=== PATIENT | female | born 2000 | race Caucasian/White ===

== ENCOUNTER 2024-04-20 14:10 | Emergency (ER) | payer OTHER ==
[~2024-04-20] VITALS: Ht 165.1 cm; Wt 53.5 kg
[2024-04-20 14:39] VITALS: TEMP 98.7
[2024-04-20] MEDS ORDERED: ACETAMINOPHEN 325 MG TABLET ONE (15:31)
[2024-04-20] MEDS ORDERED: IBUPROFEN 600 MG TABLET ONE (15:31)
[2024-04-20] MEDS: IBUPROFEN 600 MG TABLET PO ONE (15:36)
[2024-04-20] MEDS: ACETAMINOPHEN 325 MG TABLET PO ONE (15:36)
[2024-04-20 15:52] LABS: BASOPHILS % (AUTO) 0.4 % (0.0-2.0); EOSINOPHILS # (AUTO) 0.2 K/uL (0.0-0.7); EOSINOPHILS % (AUTO) 2.5 % (0.0-6.0); HEMATOCRIT 41 % (33-45); HEMOGLOBIN 13.4 g/dL (11.5-14.8); LYMPHOCYTES # (AUTO) 1.3 K/uL (0.8-4.8); LYMPHOCYTES % (AUTO) 17.4 % (20.0-44.0); MEAN CORPUSCULAR HEMOGLOBIN 31 PG (26.0-33.0); MEAN CORPUSCULAR HGB CONC 33 g/dl (31.0-36.0); MEAN CORPUSCULAR VOLUME 94 fL (82-100); MONOCYTES # (AUTO) 0.6 K/uL (0.1-1.30); MONOCYTES % (AUTO) 8.2 % (2.0-12.0); NEUTROPHILS # (AUTO) 5.4 K/uL (1.8-8.9); NEUTROPHILS % (AUTO) 71.5 % (43.0-81.0); PLATELET COUNT (AUTO) 184 K/uL (150-450); RED BLOOD CELL COUNT(AUTO) 4.36 MIL/uL (4.0-5.2); RED CELL DISTRIBUTION WIDTH 14.3 % (11.5-15.0); WHITE BLOOD COUNT (AUTO) 7.6 K/uL (4.3-11.0)
[2024-04-20 15:57] LABS: APPEARANCE,URINE CLEAR (CLEAR); BILIRUBIN,URINE NEGATIVE (NEGATIVE); BLOOD, URINE 1+ Ery/uL (NEGATIVE); COLOR,URINE YELLOW (YELLOW); KETONES,URINE 1+ mg/dL (NEGATIVE); LEUKOCYTE ESTERASE ,URINE 2+ (NEGATIVE); NITRITE, URINE NEGATIVE (NEGATIVE); PROTEIN,URINE NEGATIVE (NEGATIVE); UGLUCOSE NEGATIVE (NEGATIVE); UROBILINOGEN,URINE 0.2 EU/dL (0.2)
[2024-04-20 15:58] LABS: PREGNANCY TEST URINE QUAL NEG (NEGATIVE)
[2024-04-20 16:03] LABS: ADD URINE CULTURE YES; BACTERIA,URINE 1+ /HPF (None Seen); WBC,URINE 21-50 /HPF (0-3)
[2024-04-20 16:09] LABS: ALBUMIN 4.1 g/dL (3.4-5.0); BILIRUBIN,TOTAL 0.7 mg/dL (0.2-1.0); CREATININE 0.6 mg/dL (0.6-1.3); POTASSIUM 3.6 mmol/L (3.5-5.1); TOTAL PROTEIN, SERUM 7.7 g/dL (6.4-8.2)
[2024-04-20] MEDS ORDERED: CEPH-570 PO (17:36)
[2024-04-20 17:44] VITALS: BP 98/52; O2SAT 99
== END 2024-04-20 17:44 | disposition home or self-care (01) ==
LOC: ER 14:14
DX: N39.0 Urinary tract infection, site not specified (principal); F17.200 Nicotine dependence, unspecified, uncomplicated
CPT/HCPCS: 36415; 80053-TC; 81001; 83690-TC; 84703-TC; 85025-TC; 87086-TC

== ENCOUNTER 2025-01-08 08:11 | Emergency (ER) | payer OTHER ==
[~2025-01-08] VITALS: Ht 165.1 cm; Wt 55.8 kg
[~2025-01-08 08:11] MED LIST: CEPH-570 PO
[2025-01-08] MEDS ORDERED: MAG HYDROX/AL HYDROX/SIMETH 30 ML UDC ONE (08:50)
[2025-01-08] MEDS ORDERED: ONDANSETRON HCL/PF 4 MG/2 ML VIAL ONE (08:50)
[2025-01-08] MEDS ORDERED: LIDOCAINE VISCOUS 2% UD 15 ML UDC ONE (08:51)
[2025-01-08] MEDS ORDERED: FAMOTIDINE/PF INJ 20 MG/2 ML VIAL IV ONE (08:51)
[2025-01-08] MEDS: ONDANSETRON HCL/PF 4 MG/2 ML VIAL IVP ONE (09:00)
[2025-01-08] MEDS: FAMOTIDINE/PF INJ 20 MG/2 ML VIAL IV ONE (09:00)
[2025-01-08] MEDS: IV NS 0.9% 1,000 ML BAG IV ONE (09:05)
[2025-01-08 09:08] LABS: PLATELET COUNT (AUTO) 219 K/uL (150-450); RED BLOOD CELL COUNT(AUTO) 4.34 MIL/uL (4.0-5.2); RED CELL DISTRIBUTION WIDTH 13.1 % (11.5-15.0); WHITE BLOOD COUNT (AUTO) 10.5 K/uL (4.3-11.0)
[2025-01-08] MEDS: MAG HYDROX/AL HYDROX/SIMETH 30 ML UDC PO ONE (09:09)
[2025-01-08] MEDS: LIDOCAINE VISCOUS 2% UD 15 ML UDC MM ONE (09:09)
[2025-01-08 09:17] LABS: CALCIUM, SERUM 8.9 mg/dL (8.5-10.1); CREATININE 0.6 mg/dL (0.6-1.3); SODIUM SERUM 141.0 mmol/L (136-145); UREA NITROGEN, BLOOD 6.0 mg/dL (7-18)
[2025-01-08 09:23] LABS: ASPARTATE AMINOTRANSFERASE 24.0 U/L (15-37); TOTAL PROTEIN, SERUM 7.9 g/dL (6.4-8.2)
[2025-01-08] MEDS ORDERED: ONDA4TAB5 PO (09:46)
[2025-01-08] MEDS ORDERED: FAMO-131 PO (09:46)
[2025-01-08 10:08] LABS: APPEARANCE,URINE CLEAR (CLEAR); BLOOD, URINE NEGATIVE Ery/uL (NEGATIVE); LEUKOCYTE ESTERASE ,URINE NEGATIVE (NEGATIVE); NITRITE, URINE NEGATIVE (NEGATIVE); UGLUCOSE NEGATIVE (NEGATIVE)
[2025-01-08 10:11] LABS: PREGNANCY TEST URINE QUAL NEGATIVE (NEGATIVE)
[2025-01-08 10:20] LABS: AMPHETAMINE, URINE NEGATIVE (NEGATIVE); BARBITURATE, URINE NEGATIVE (NEGATIVE); BENZODIAZEPINE, URINE NEGATIVE (NEGATIVE); CANNABINOID, URINE NEGATIVE (NEGATIVE); COCCAINE, URINE NEGATIVE (NEGATIVE); OPIATE, URINE NEGATIVE (NEGATIVE)
[2025-01-08 11:01] VITALS: BP 102/74; TEMP 98.1; O2SAT 99
== END 2025-01-08 10:45 | disposition home or self-care (01) ==
LOC: ER 08:13
DX: F10.129 Alcohol abuse with intoxication, unspecified (principal); K29.20 Alcoholic gastritis without bleeding; Z60.2 Problems related to living alone; Z79.899 Other long term (current) drug therapy; Y90.6 Blood alcohol level of 120-199 mg/100 ml
CPT/HCPCS: 99284; 96374; 96361; 96375; 85025; 80048; 83690; 80076; 84703; 81003; 36415; 80320; 80307; J1308; J2405; J7030; G0480